=== PATIENT | female | born 1980 | race Hispanic/Latino ===

== ENCOUNTER 2022-12-15 13:44 | Emergency (ER) | payer SELFPAY ==
--- NOTE | 2022-12-15 13:50 | ED.SKABFB ---
HPI - Skin/Abscess/Foreign Bdy General Chief complaint: Skin/Abscess/Foreign Body Stated complaint: Rash on Hands/Legs Time Seen by Provider: 12/15/22 14:00 Source: patient Mode of arrival: ambulatory Limitations: no limitations History of Present Illness HPI narrative: Jeannine is a 42-year-old female patient presenting to the clinic today with complaints of an generalized itchy rash to her entire body. She reports she had taken a garlic supplement prior to her symptoms. States that she has had this before without any concerns. She is having generalized itching but denies any shortness of breath, chest pain, tongue swelling, difficulty swallowing, or drooling. Related Data Allergies Allergy/AdvReac Type Severity Reaction Status Date / Time No Known Allergies Allergy Mild Verified 12/15/22 13:47 Review of Systems Review of Systems: Pertinent positives per HPI. Patient denies any fever, chills, headache, visual changes, dizziness, cough, runny nose, sore throat, shortness of breath, chest pain, palpitations, nausea, vomiting, diarrhea, constipation, abdominal pain, or any urinary issues. PMFSH Comments At the time of my signature, I reviewed and agree with the nursing past medical, surgical, social, and family history. There is no relevant family history pertinent to the patient complaint. Exam Narrative: General: Well-developed, well nourished, in no apparent distress Head: Normocephalic, atraumatic. Cardio: Regular rate and rhythm, s1 and s2 normal, no murmur appreciated. Resp: Clear to auscultation bilaterally, no rhonchi, rales, wheezing or rubs. Integumentary: [place], warm, and dry, intact without lesion, red generalize itchy rash to hands, arms, legs, feet, and torso Course Course Emergency Course: Portions of this record may have been created with voice recognition software. Level of Care: Express Care Visit Vital Signs Vital signs: Vital signs reviewed MDM - Skin/Abscess/Foreign Bdy MDM Narrative Medical decision making narrative: At the time of visit patient is resting comfortably on the exam table. I suspect patient has allergic reaction due to the garlic supplement that she had taken today. Decadron 10 mg IM given in the clinic today as well as 50 mg of Benadryl oral. Will send in prescription for prednisone, Zyrtec, and Pepcid. Will also have the patient use Benadryl for itching. Supportive measures were discussed with the patient she voiced understanding discharge instructions agrees to treatment plan. Differential Diagnosis Differential diagnosis: Likely viral exanthem, urticaria, allergic reaction to drug and contact dermatitis Discharge Plan Discharge Clinical Impression: Allergic reaction to drug Qualifiers: Encounter type: initial encounter Qualified Code(s): T78.40XA - Allergy, unspecified, initial encounter Patient Disposition: Home, Self-Care Condition: Stable Instructions: Antibiotic Form, Itchy Skin (ED), General Allergic Reaction (ED) Additional Instructions: Evite elvia p?ldoras que causaron s?ntomas de reacci?n al?rgica. Decadron 10 mg IM administrado en la cl?leann hoy Elvia Pepcid 40 mg al d?a x7 d?as Elvia prednisona 40 mg diarios x 5 d?as Puede elvia Zyrtec 10 mg al d?a x7 d?as Dimple las duchas calientes Evite rascarse Puede elvia 25-50 mg de benadryl cada 6 horas seg?n sea necesario para la picaz?n. Nikole un seguimiento con sun PCP en 3 a 5 d?as si los s?ntomas persisten o antes si empeoran Vaya a la kelsey de emergencias si los s?ntomas empeoran: fiebre, sarpullido que se extiende con el tratamiento, dificultad para respirar, hinchaz?n de la lengua, dificultad para tragar, babeo o dolor en el pecho. Patient Language: Korean Prescriptions: New prednisone 20 mg tablet 40 mg PO DAILY 5 Days Qty: 10 0RF famotidine [Pepcid] 40 mg tablet 40 mg PO DAILY 7 Days Qty: 7 0RF cetirizine [Zyrtec] 10 mg tablet 10 mg PO DAILY 7 Days Qty: 7 0RF Fo
[2022-12-15 13:55] VITALS: BP 153/93; PULSE 97; RESP 18; TEMP 36.8; O2SAT 99
[2022-12-15] MEDS: diphenhydrAMINE HCl CAP 25 MG CAPSULE 50 MG PO (14:14)
== END 2022-12-15 14:34 | disposition home or self-care (01) ==
PROVIDERS: Emergency Provider Nurse Practitioner Family; PCP Physician Assistant
DX: R21 Rash and other nonspecific skin eruption (principal); T50.995A Adverse effect of other drugs, medicaments and biological substances, initial encounter
CPT/HCPCS: 96372; 99213; A9270; G0463; J1100